=== PATIENT | male | born 1950 | race Caucasian/White ===

== ENCOUNTER 2024-11-19 12:57 | Inpatient (IN) | payer MEDICARE, OTHER, SELFPAY ==
[2024-11-19] VITALS (10 sets, daily range): BP systolic 139–200; BP diastolic 61–89; BMI 21.4; BMI 20.8
[2024-11-19 11:09] LABS: % Basophils 0.1 % (0-2); % Eosinophils 0.1 % (0-6); % Immature Granulocytes 0.4 % (0-0.5); % Lymphocytes 8.7 % (20.5-51.1); % Monocytes 13.7 % (1.7-9.3); Absolute Immature Granulocytes 0.1 10^3/uL (0-0.05); Absolute Lymphocytes 1.2 10^3/uL (1.2-3.4); Absolute Monocytes 1.9 10^3/uL (0.1-0.6); Absolute Neutrophils 10.4 10^3/uL (1.4-6.5); Hematocrit 35.7 % (39.0-52.0); Hemoglobin 12.4 g/dL (13.0-18.0); Mean Corp Hgb Conc. 34.7 g/dL (33.0-37.0); Mean Corpuscular Hgb 31.7 pg (27.0-31.0); Mean Corpuscular Volume 91.3 fL (80.0-94.0); Mean Platelet Volume 9.2 fL (7.4-10.4); Nucleated Red Blood Cells % 0 % (-); Platelet Count 245 10^3/uL (130-400); Red Blood Cell Count 3.91 10^6/uL (4.70-6.10); Red Cell Dist. Width 12.6 % (11.5-14.5); White Blood Cell Count 13.5 10^3/uL (4.8-10.8)
[2024-11-19 11:16] LABS: INR 1.33; PT 16.8 Sec (11.4-14.6)
--- NOTE | 2024-11-19 11:21 | ED.GENMED ---
History of Present Illness
General
Chief Complaint: Breathing Problem
Source: patient and spouse
Exam Limitations: none
Time Seen by Provider: 11/19/24 10:57
Nursing documentation reviewed up to this point in time: agreed with
History of Present Illness
History of Present Illness:
74-year-old male with hx HTN on Metoprolol, here now for SOB he feels is getting worse since yesterday. states pt took dog for a walk, came back after short period, went to the BR and said 'I think I'm having a panic attack.' She states he told
her he felt SOB and since then 'just hasn't been himself, laying around most of the time.' States when he got up during night to go to bathroom he told her he felt SOB. Pt denies CP, n/v/d/c. Has developed a cough past 24 hours
Pt had routine follow up with his Anesthesia Resident Dr. Lizarraga 4 days ago for echocardiogram
Found to be in new a fib and started on Eliquis and Diltiazem 240 mg. Has had 5 doses of Eliquis, 2 doses of Diltiazem.
Has appt in 3 days for stress test.
Past History
Past History
ED Past Medical History: HTN, Hypercholesterolemia and Other (peripheral vasc disease)
ED Past Surgical History: Other (stent RLE)
Social History
Tobacco: Former smoker
Alcohol: None
Personal:
Living: with family
Review of Systems
Review of Systems
Allergies reviewed?: Yes
All Other Systems: ROS reviewed and negative except as documented in HPI and ROS
Constitutional: Reports fatigue; Denies fever
EENT: Denies sore throat
Respiratory: Reports cough and trouble breathing
Cardiac: Denies chest pain
ABD/GI: Denies abdominal pain, nausea, vomiting, diarrhea or anorexia
: Denies dysuria or difficulty voiding
Musculoskeletal: Reports no symptoms
Skin: Reports no symptoms
Neurological: Reports no symptoms
Phy Exam
Physical Exam
Physical Exam:
GENERAL: No acute distress. A&Ox3.
CONSTITUTIONAL: Afebrile.
EYES: clear, conjunctivae normal
ENMT: moist mucus membranes, Pharynx nl
RESPIRATORY: Regular respirations, nonlabored, lungs clear.
CARDIOVASCULAR: Regular rate and irregular rhythm, no murmurs, no rubs.
GI: Soft, nontender, normal BS
MUSCULOSKELETAL: Moves with ease. Well perfused. No edema
SKIN: Warm, dry, pink
PSYCH: Normal mood and affect. Well kept, interactive and appropriate
NEUROLOGIC: Awake, alert and oriented. No focal neurological deficits
Scores
Heart Failure Risk
Heart Failure Risk Score: Yes
History of Stroke or TIA: No
History of intubation for respiratory distress: No
Heart rate on ED arrival >/= 110: No
SaO2 <90% on arrival on room air: No
HR >/=110 during 3min walk test (or too ill to perform test): Yes
ECG has acute ischemic changes: No
Urea >/=12mmol/L (BUN 33.6mg/dL): No
Serum CO2>/=35mmol/L: No
Troponin I or T elevated to CO Level (0.4mg/dL): No
NT-proBNP >/=5,000ng/L (5,000pg/ml): Yes
HF Risk Score: 3
Admission Status: HIGH RISK 15.9% Consider SNF treatment or admission to hospital
Course
Orders/Labs/Results
Orders:
Orders
11/19/24 10:31
EKG [Electrocardiogram (*1)] Urgent
Reason for Study: Palpitations
EKG- Treatment ONCE
11/19/24 10:39
Influenza A+B Rapid Molecular Urgent
DAMIR Source: Nasal Swab
Specimen Description:
Date Specimen was Collected: 11/19/24
Time Specimen was Collected: 10:38
11/19/24 10:52
CR Chest - 2 Views Urgent
Comment:
Reason For Exam: sob on exertion
11/19/24 10:58
Complete Blood Count/With Diff Urgent
Comprehensive Metabolic Panel Urgent
Pro-BNP [NT-proBNP] Urgent
Prothrombin Time Urgent
Troponin I Urgent
11/19/24 12:23
Furosemide [Lasix] 40 mg IV NOW STA
11/19/24 12:47
Admit/Transfer Patient As Directed
Co-Sign Provider:
Level of Care: Inpatient admission
Assign to:: Telemetry
Physician / Group: [email or web address]
Diagnosis: acute HF suspect CHF type unknown, Prx AF control VR , uncontrol HTN
Reason for Telemetry: Acute Heart Failure
Date to Stop Telemetry: 11/22/24
Time to Stop Telemetry: 11:00
Reason for Hospitalization: acute HF suspect CHF type unknown, Prx AF control VR , uncontrol HTN
Expected length of stay greater than two midnights?: Yes
ELOS- Estimated Length of Stay in days: 3
I certify the patient meets the requirements for IP care: Yes
11/19/24 12:49
Code Status As Directed
Resuscitation Status: Full Code
11/19/24 12:59
COVID-19 Antigen Routine
Source: Nasal Swab
11/19/24 14:40
Troponin I Q6H
Comment: at admission & every 6 hours x 2 (3 total), ECG to be done with each level
11/19/24 14:40
CARDIOLOGY CONSULT Routine
Consulting Provider: Leida Miller
Was physician already notified: Yes
Reason for consult: acute HF suspect CHF type unknown, Prx AF control VR , uncontrol HTN
HF DIETARY CONSULT Routine
HF EDUCATOR CONSULT Routine
Comment:
Activity As Directed
Activity Level: With Assistance
Intake/ Output As Directed
Frequency: Per unit guidelines
Patient Education As Directed
Type: CHF folder
Comment: give on admission. Document in Interdisciplinary Education record
Sleep Apnea Assessment by RN As Directed
Comment:
Physician Instructions:
Vital Signs As Directed
Frequency: Other
Additional Instructions:: Q12 or per unit guidelines if more frequent.
Weight As Directed
Frequency: Daily
Type of Scale: Standing Scale
Comment: Daily morning weight. If unable to stand, use balanced bed scale.
Weight As Directed
Frequency: Once
Type of Scale: Standing Scale
Comment: Upon Admission. If unable to stand, use balanced bed scale.
Pulse Ox/cont/shift [RESP] Routine
Quantity: 1
Special Instructions: Daily pulse oximetry at rest. If greater than 92% at rest also obtain pulse oximetry
while ambulating as tolerated.
11/19/24 Dinner
Cholesterol Lowering
At Your Request: Full Participation
Does patient need a safe tray?: No
Cholesterol Lowering: Sodium, 2 Gram
11/19/24 16:00
Furosemide [Lasix] 20 mg IV BID AT 0800,1600
11/19/24 20:00
Apixaban [Eliquis] 5 mg PO BID
11/19/24 20:40
Troponin I Q6H
Comment: at admission & every 6 hours x 2 (3 total), ECG to be done with each level
11/20/24 02:40
Troponin I Q6H
Comment: at admission & every 6 hours x 2 (3 total), ECG to be done with each level
11/20/24 06:00
Echo 2D MMode Color/Doppler IN AM
Reason for Study: heart failure
Basic Metabolic Panel IN AM
Cardiovascular Evaluation IN AM
Complete Blood Count/With Diff IN AM
TSH Reflex To Free T4 IN AM
11/20/24 08:00
Atorvastatin [Lipitor] 40 mg PO DAILY
Metoprolol Xl [Toprol Xl] 25 mg PO DAILY
11/21/24 06:00
Basic Metabolic Panel IN AM
11/22/24 06:00
Basic Metabolic Panel IN AM
11/22/24 11:00
DC Protocol for Telemetry ONCE
Abnormal Lab Results
11/19/24
10:58
WBC 13.5 H 10^3/uL
(4.8-10.8)
RBC 3.91 L 10^6/uL
(4.70-6.10)
Hgb 12.4 L g/dL
(13.0-18.0)
Hct 35.7 L %
(39.0-52.0)
MCH 31.7 H pg
(27.0-31.0)
Abs Immat Gran (auto) 0.1 H 10^3/uL
(0-0.05)
Absolute Neuts (auto) 10.4 H 10^3/uL
(1.4-6.5)
Absolute Monos (auto) 1.9 H 10^3/uL
(0.1-0.6)
Neutrophils % 77.0 H %
(42.2-75.2)
Lymphocytes % 8.7 L %
(20.5-51.1)
Monocytes % 13.7 H %
(1.7-9.3)
PT 16.8 H Sec
(11.4-14.6)
Sodium 127 L mmol/L
(135-145)
Chloride 96 L mmol/L
(98-107)
Carbon Dioxide 19 L mmol/L
(22-30)
Glucose 118 H mg/dl
(70-99)
Total Bilirubin 1.6 H mg/dl
(0.2-1.3)
11/19/24 10:58
11/19/24 10:58
Vital Signs
Initial and Last Documented VS:
Initial Vital Signs
Temp Pulse Resp BP Pulse Ox
99.2 F 92 18 169/77 93
11/19/24 10:35 11/19/24 10:35 11/19/24 10:35 11/19/24 10:35 11/19/24 10:35
Last Documented Vital Signs
Temp Pulse Resp BP Pulse Ox
99.8 F 99 20 173/80 92
11/19/24 15:18 11/19/24 15:18 11/19/24 15:18 11/19/24 15:18 11/19/24 15:18
MDM/Problems Addressed
Differential Diagnosis Includes:
CHF, covid, flu
MDM/Problems Addressed:
74-year-old male with hx HTN on Metoprolol, here now for SOB he feels is getting worse since yesterday. states pt took dog for a walk, came back after short period, went to the BR and said 'I think I'm having a panic attack.' She states he told
her he felt SOB and since then 'just hasn't been himself, laying around most of the time.' States when he got up during night to go to bathroom he told her he felt SOB. Pt denies CP, n/v/d/c. Has developed a cough past 24 hours
Pt had routine follow up with his Anesthesia Resident Dr. Lizarraga 4 days ago for echocardiogram
Found to be in new a fib and started on Eliquis and Diltiazem 240 mg. Has had 5 doses of Eliquis, 2 doses of Diltiazem.
Has appt in 3 days for stress test.
Afebrile, NAD
EKG: Afib Rate 94
HR on monitor 82-98
11:30 a.m.
CBC: WBC 13.5 w elevated monos
CMP:Na 127 otherwise unremarkable.
[id number]
Troponin WNL
Flu neg
12:10 p.m.
CXR: CHF
Plan: Admit: Recent new onset Afib, CHF
Pt and updated
Hospitalist notified of admission
*Critical Care Note
Total Time (30-74mins, 75-104mins- exclusive of procedures): Not Applicable
ED Attending Note
-
Portions of this chart may have been created with voice recognition software.� Occasional wrong word or��sound alike� substitutions may have occurred due to the inherent limitations of voice recognition software.
Discharge Plan
Departure
Patient Disposition: Admit
Date of Disposition: 11/19/24
Time of Disposition: 12:14
Admit to: Telemetry
Presentation/result/management discussed w/ accepting MD/DO: Hospitalist
Condition: Fair
Discharge Problem:
A-fib, CHF (congestive heart failure)
Interventions
Interventions:
*Risk Screen - Suicide Last Done: 11/19/24 10:55
*General Assessment Last Done: 11/19/24 10:55
*Neglect/Abuse Screening Last Done: 11/19/24 10:55
*ED COVID-19 Vaccine History Last Done: 11/19/24 10:55
*Nursing Disposition Last Done: 11/19/24 13:55
ED- Cardiac Assessment Last Done: 11/19/24 10:55
ED- Pulmonary Assessment Last Done: 11/19/24 10:55
Discharge Date and Time
Discharge Date/Time: 11/19/24 13:56
[2024-11-19 11:25] LABS: ALT (SGPT) 16 U/L (0-50); AST (SGOT) 25 U/L (17-59); Albumin 4.1 g/dl (3.5-5.0); Alkaline Phosphatase 56 U/L (38-126); Blood Urea Nitrogen 11 mg/dl (9-20); Calcium 9.1 mg/dl (8.4-10.2); Carbon Dioxide 19 mmol/L (22-30); Chloride 96 mmol/L (98-107); Estimated Creatinine Clearance 83 ml/min; Glucose 118 mg/dl (70-99); Potassium 4.7 mmol/L (3.5-5.1); Sodium 127 mmol/L (135-145); Total Bilirubin 1.6 mg/dl (0.2-1.3); Total Protein 7.4 g/dl (6.3-8.2); eGFR > 60.00
[2024-11-19 11:36] LABS: NT-proBNP 4530 pg/ml; Troponin I < 0.012 ng/ml
--- NOTE | 2024-11-19 12:40 | HPS.HSE ---
Family Physician
-
Family Physician: Erin Villa MD
Chief Complaint
-
SoB
History of Present Illness
74M No prior admission to HX HTN , recently Dxed New AF seen at ER;
- evaluation of progressive SoB since yesterday
- states pt took dog for a walk, came back after short period, went to the and said 'I think I'm having a panic attack.'
- he felt SOB and since then 'just hasn't been himself, laying around most of the time.'
- onset of cough past 24 hours
Pt had routine follow up with [facility] [place] [employer] Dr. Lizarraga 4 days ago for echocardiogram
Found to be in new a fib and started on Eliquis and Diltiazem 240 mg. Has had 5 doses of Eliquis, 2 doses of Diltiazem.
Has appt in 3 days for stress test.
ROS:
Pt denies CP, n/v/d/c.
Medical History
Past Medical History
Past Medical History: Reports Arrhythmia (recently Dxed new onset of AF ), HTN and Hypercholesterolemia
Past Surgical History: Reports Other (PAD - stent RLE))
Social History
Tobacco: Former Smoker
Alcohol: None
Personal:
Living: With Family
Family History
Family History: Not pertinent
Allergies / Home Medications
Allergies reflects when Allergies were last updated in [employer].
Home Medications with original date entered in [employer]
Allergy/Medication List:
Allergies
Allergy/AdvReac Type Severity Reaction Status Date / Time
No Known Allergies Allergy Verified 05/18/22 09:42
Home Medications
aspirin 81 mg tablet 81 mg PO DAILY 05/18/22
atorvastatin 40 mg tablet 40 mg PO DAILY 05/18/22
furosemide 40 mg tablet 40 mg PO .EVERY OTHER DAY 05/18/22
lisinopril 10 mg tablet 10 mg PO DAILY 05/18/22
metoprolol succinate 25 mg tablet,extended release 24 hr 25 mg PO DAILY 05/18/22
multivitamin 1 cap PO DAILY 05/18/22
Review of Systems
-
Constitutional: Reports No Symptoms
EENT: Reports No Symptoms
Cardiac: Reports No Symptoms
Abdomen/GI: Reports No Symptoms
: Reports No Symptoms
Musculoskeletal: Reports No Symptoms
Skin: Reports No Symptoms
Neurological: Reports No Symptoms
Endocrine: Reports No Symptoms
Hematologic/Lymphatic: Reports No Symptoms
Psych: Reports No Symptoms
Physical Exam
Vital Signs
Vital Signs
Temp Pulse Resp BP Pulse Ox
99.7 F 88 20 151/77 87
11/19/24 10:59 11/19/24 12:05 11/19/24 12:05 11/19/24 11:00 11/19/24 12:05
Physical Exam
General: No Apparent Distress
HEENT: NormoCephalic and Moist mucous membranes
Respiratory: Clear
Cardiac: S1/S2 and Irregular Rhythm; No Murmur
GI: Soft, Non Tender, Non Distended and Normal Bowel Sounds
Musculoskeletal: No Edema
Neuro: AO x 3 and No Motor Deficits
Psych: Calm and Intact Judgment/Insight
Laboratory Results
-
11/19/24 10:58
11/19/24 10:58
Laboratory Results
PT 16.8 Sec (11.4-14.6) H 11/19/24 10:58
INR 1.33 11/19/24 10:58
Total Bilirubin 1.6 mg/dl (0.2-1.3) H 11/19/24 10:58
AST 25 U/L (17-59) 11/19/24 10:58
ALT 16 U/L (0-50) 11/19/24 10:58
Alkaline Phosphatase 56 U/L (38-126) 11/19/24 10:58
Troponin I < 0.012 ng/ml 11/19/24 10:58
Data Reviewed
-
Diagnostic Radiology: Image Personally Visualized and interpreted
Medical Tests (Nuc Med, Echo, EKG etc): Report Reviewed by me
Lab Data: Labs Reviewed by me
Impression/Plan
-
Reviewed VS: T 99.7 HR mid 80s RR 20s BP 150/77 - 177/76 PO low 90s to 87
Data
WCC 13.5
Na 127
Cl 96
CO2 19
nl Cr , nl eGFR
TPNI NEG
proBNP 4530
CXR; pending final report . My view suspect CHF
EKG;
ATRIAL FIBRILLATION wih VR 90s
ABNORMAL ECG
NO PREVIOUS ECGS AVAILABLE
No prior ECHO in [facility]
No prior hospitalist admission:
ASSESSMENT & PLAN
Pending Rx reconciliation
Acute CHF ; type unknown
- cont. IV Lasix 20mg BID
- daily: wt, IOs, BMP
- ECHO in AM
- CBC card consult
Prox AF with control VR on Metoprolol succinate 25mg PO daily
Of note: Pt had routine follow up with [facility] [place] [employer] Dr. Lizarraga 4 days ago for echocardiogram
Found to be in new a fib and started on Eliquis and Diltiazem 240 mg.
Has had 5 doses of Eliquis, 2 doses of Diltiazem.
Has appt in 3 days for stress test.
- c/w SOFTWARE QUALITY ASSURANCE ENGINEER Eliquis
- cont. current Metoprolol succinate dose
- ECHO
- await Card evaluation
Essential HTN; poorly control
Preserved renal function
- on SOFTWARE QUALITY ASSURANCE ENGINEER Lisinopril 10mg daily, metoprolol succinate 25mg daily, Diltiazem ER 240 mg daily
- will increase lisinopril to 20 mg daily
- Observe BP
- Observe RFTs daily
Leucocytosis
Low grade fever
- check Flu A & B
- check Covid
- await final CXR read
HLD
- on ASA nd Atorvastatin
DVT Px: Eliquis
Full code
IP TLM
[2024-11-19] MEDS: LASIX 40 MG IV (13:00)
[2024-11-19 13:35] LABS: COVID-19 Antigen Negative (Negative)
[2024-11-19] MEDS: LASIX 20 MG IV (16:13)
[2024-11-19 18:20] LABS: Troponin I < 0.012 ng/ml
--- NOTE | 2024-11-19 18:31 | CON.CAR ---
Consultation
Consultation Request
Date/Time Consultation Requested: 11/19/24
Date/Time Consultation Performed: 11/19/24
Requesting Provider: Dr Leblanc
Performing Provider: Dr Miller (primary cardiology [facility])
Reason for Consultation: AF
Medical History
-
Chief Complaint: weakness
History of Present Illness:
74-year-old gentleman with a past medical history of PAD status post PCI to the left leg and hypertension who follows with Dr. Asher at [facility] reports he was diagnosed on Wednesday with new atrial fibrillation. He had no sense of it,
so was started on medications. After he took his Eliquis yesterday he felt weak and short of breath and thought it was due to this. In retrospect he does not think this is the case any longer. He has an appointment on Wednesday for a stress test
and further evaluation with his multiplex operator. He reports they were considering a cardioversion in the future but not right away. Currently, he has no sense of palpitations, shortness of breath or chest pain.He says on Wednesday he was collecting
and gathering firewood with a wheelbarrow and wheeling in him without an issue.
Past Medical History
Past Medical History: HTN and Other (PAD)
Social History
Tobacco: Former Smoker
Alcohol: None
Family History
Family History: Reviewed & Not Pertinent
Allergies / Home Medications
Allergy/AdvReac Type Severity Reaction Status Date / Time
No Known Allergies Allergy Verified 05/18/22 09:42
�Medication �Instructions �Recorded �Confirmed �Type
metoprolol succinate 25 mg 25 mg PO DAILY 05/18/22 11/19/24 History
tablet,extended release 24 hr
acetaminophen 500 mg tablet 500 mg PO Q6HPRN PRN mild pain 11/19/24 11/19/24 History
apixaban 5 mg tablet 5 mg PO BID 11/19/24 11/19/24 History
aspirin 81 mg capsule 81 mg PO DAILY 11/19/24 11/19/24 History
diltiazem HCl 240 mg 240 mg PO DAILY 11/19/24 11/19/24 History
capsule,extended release 24 hr
loperamide 2 mg capsule 2 mg PO DAILYPRN PRN diarrhea 11/19/24 11/19/24 History
Review of Systems
-
All other systems: Negative unless noted
Physical Exam
Vital Signs
Temp Pulse Resp BP Pulse Ox
99.8 F 88 20 161/82 92
11/19/24 15:18 11/19/24 15:20 11/19/24 15:18 11/19/24 15:20 11/19/24 15:18
Lab Results
11/19/24 10:58
11/19/24 10:58
Troponin I < 0.012 ng/ml 11/19/24 17:47
Jin-S-Jhcjuwheuxi Pept 4530 pg/ml 11/19/24 10:58
Physical Exam
General: Well Developed and Well Nourished
HEENT: Normocephalic
Respiratory: Clear; Negative Wheezes, Crackles or Rhonchi
Cardiac: S1/S2 and Irregular Rhythm; Negative Murmur, Rub or Peripheral Edema
Musculoskeletal: No Clubbing, No Cyanosis and No Edema
Neuro: AO x 3
Impression / Plan
-
74-year-old male with a new diagnosis of atrial fibrillation on Wednesday presented for evaluation of weakness and shortness of breath. Currently, he he has no sense of palpitations and denies shortness of breath to me.
Shortness of breath: Denies to me. Chest x-ray shows right-sided increased interstitial markings. He has a leukocytosis. He is COVID and flu negative.
Differential diagnosis includes atypical pneumonia versus heart failure. proBNP is elevated and A-fib is new, favors heart failure
Agree with diuresis with IV Lasix and intensive monitoring and reassessment.
Will check an echo.
Atrial fibrillation with rapid ventricular response:
-Typically on metoprolol 25 mg daily, he took 2 doses of diltiazem to 40 mg after prescription by his primary multiplex operator.
-I will uptitrate his metoprolol and try to keep him on a single agent.
-I discussed possibly offering him RONNIE/DC cardioversion but he prefers to do that with his primary multiplex operator, therefore we will just update echocardiogram.
-He understands he needs to be compliant with Eliquis given the elevated stroke risk.
PAD: Reports prior PCI to the leg, he is not on a statin, will clarify
Hypertension: Elevated, increasing beta-kacie.
Will follow
Data Reviewed
-
EKG: Tracing Personally Visualized and interpreted (Atrial fibrillation.)
Radiology: Image Personally Visualized and interpreted (Right-sided interstitial markings small bilateral pleural effusions)
Labs: Labs Reviewed by me (proBNP 4530, troponin less than 0.012 x 2 white count 13.5 with 77% neutrophils)
[2024-11-19] MEDS: ELIQUIS 5 MG PO (20:34)
[2024-11-19] MEDS: TOPROL XL 25 MG PO (20:35)
[2024-11-19 21:58] LABS: Troponin I < 0.012 ng/ml
[2024-11-20 03:00] VITALS: BP 154/85
[2024-11-20 03:52] LABS: % Basophils 0.2 % (0-2); % Eosinophils 0.8 % (0-6); % Immature Granulocytes 0.4 % (0-0.5); % Lymphocytes 17.8 % (20.5-51.1); % Monocytes 16.4 % (1.7-9.3); % Neutrophils 64.4 % (42.2-75.2); Absolute Eosinophils 0.1 10^3/uL (0-0.7); Absolute Monocytes 1.9 10^3/uL (0.1-0.6); Absolute Neutrophils 7.3 10^3/uL (1.4-6.5); Hematocrit 36.2 % (39.0-52.0); Hemoglobin 12.6 g/dL (13.0-18.0); Mean Corp Hgb Conc. 34.8 g/dL (33.0-37.0); Mean Corpuscular Hgb 32.3 pg (27.0-31.0); Mean Corpuscular Volume 92.8 fL (80.0-94.0); Mean Platelet Volume 9.5 fL (7.4-10.4); Nucleated Red Blood Cells % 0 % (-); Platelet Count 227 10^3/uL (130-400); Red Cell Dist. Width 12.6 % (11.5-14.5); White Blood Cell Count 11.4 10^3/uL (4.8-10.8)
[2024-11-20 04:08] LABS: Blood Urea Nitrogen 12 mg/dl (9-20); Calcium 8.8 mg/dl (8.4-10.2); Carbon Dioxide 24 mmol/L (22-30); Chloride 92 mmol/L (98-107); Estimated Creatinine Clearance 81 ml/min; Glucose 108 mg/dl (70-99); HDL Cholesterol 78 mg/dl; LDL Cholesterol, Calculated 65 mg/dl; Potassium 4.3 mmol/L (3.5-5.1); Sodium 125 mmol/L (135-145); Total Cholesterol 152 mg/dl (50-199); Triglyceride 48 mg/dl (10-149); Very Low Density Lipoprotein 9 mg/dl (0-30); eGFR > 60.00
[2024-11-20 04:20] LABS: Troponin I < 0.012 ng/ml
[2024-11-20 04:39] LABS: TSH Reflex To Free T4 2.65 uIU/ml (0.47-4.68)
[2024-11-20 06:00] VITALS: BMI 19.5
[2024-11-20 07:22] VITALS: BMI 19.5
[2024-11-20 07:36] VITALS: BP 138/90
--- NOTE | 2024-11-20 07:40 | W.PN.HOSP.TC ---
Addendum entered and electronically signed by Joseph Leary MD 11/21/24 00:14:
Attending Addendum:
I saw and evaluated the patient. I reviewed the resident�s note and agree with findings and plan as documented in the resident�s note. Sub: Feels great. Denies SOB CP palps. 'id like to go home today' Full 12 point ROS reviewed and negative except
as documented Exam: Vitals reviewed in chart GEN-NAD heart irreg irreg lungs fine crackles at abses abd soft LE no edema
#Acute HFpEF
# Shortness of breath
- resolved
- now euvolemic
- Received IV Lasix 20mg BID
- daily: wt, IOs, 4 kg down
- ECHO 11/20- unchanged
- uptitrated metoprolol XL to BID
- started on Farxiga, registered nurse hh case manager consult for pricing Farxiga versus Jardiance;
- prescription provided to the patient upon discharge
#Atrial fibrillation with rapid ventricular response
-c/w Eliquis 5mg bid
-cont. increased Metoprolol succinate dose 25mg bid
-RONNIE/DC cardioversion with outpatient bingo cashier on 11/22
#Essential HTN; poorly control on arrival
-- better controlled
-- Metoprolol XL increased to 25 twice daily
-- Discontinue diltiazem
#Leucocytosis
--Negative Flu A & B, Covid
--Trending down
--11/19 CXR:Diffuse interstitial pneumonia throughout the right hemithorax, most pronounced in the perihilar distribution and right upper lobe. No focal dense consolidation. Trace bilateral pleural effusions, right slightly greater than left.
#Asymptomatic Chronic Hyponatremia
-- States his sodium usually runs around 126 and he is aware of this.
#Hyperlipidemia
--on ASA and Atorvastatin
Full code
DC home today
Time spent coordinating care, DC planning, review of DC plan of care with resident, transition of care, review of records, med rec/scripts sent electronically, consults, notes, d/w consultants, nursing, cards, and CM� 33 mins
Original Note:
Today's Communication/Plan
-
Discharge home
follow-up with outpatient bingo cashier if echo unremarkable.
Assessment / Plan
Assessment / Plan
74-year-old male with a past medical history of PAD status post PCI to the left leg and hypertension and new atrial fibrillation presented with Progressive SOB.
ECHO:
Normal left ventricular size, wall thickness and systolic function.
LV ejection fraction is 55% by volumetric assessment.
No regional wall motion abnormalities are seen.
Normal right ventricular size and function.
Mild to moderate eccentric mitral regurgitation.
Estimated pulmonary artery pressure of 20-25 mmHg assuming a right atrial
pressure of 3 mmHg.
No prior study available for comparison
#Acute HFpEF
# Shortness of breath
-- Seems euvolemic
-- Troponin negative
-- Received IV Lasix 20mg BID; will provide Lasix 40 mg dose for as needed use per cardiology recommendations.
-- daily: wt, IOs, 4 kg down
-- ECHO today; cardiology input appreciated; echo unremarkable.
-- Per cardiology chart they offered RONNIE/DC cardioversion but patient refused while inpatient and plans to do with with outpatient bingo cashier.
-- started on Farxiga, registered nurse hh case manager consult for pricing Farxiga versus Jardiance; prescription provided to the patient upon discharge
#Atrial fibrillation with rapid ventricular response
--started on Eliquis and Diltiazem 240 mg by outpatient cardio few days ago
--c/w Eliquis 5mg bid
--cont. current/increased Metoprolol succinate dose 25mg bid
#Essential HTN; poorly control on arrival
-- On arrival was using metoprolol succinate 25mg daily, Diltiazem ER 240 mg daily
-- Metoprolol increased to 25 twice daily
-- Discontinue diltiazem
#Leucocytosis
--Negative Flu A & B, Covid
--Trending down
--11/19 CXR:Diffuse interstitial pneumonia throughout the right hemithorax, most pronounced in the perihilar distribution and right upper lobe. No focal dense consolidation. Trace bilateral pleural effusions, right slightly greater than left.
#Asymptomatic Hyponatremia
-- States his sodium usually runs around 126 and he is aware of this.
#Hyperlipidemia
--on ASA and Atorvastatin
Full code
Anticipated Discharge: Today
Subjective/Interval History
-
Date of Service: November 20, 2024
Patient states he is feeling fine.
Objective Data
-
Labs:
Laboratory Results
11/20/24
03:36
WBC 11.4 H
Hgb 12.6 L
Hct 36.2 L
Plt Count 227
Sodium 125 L
Potassium 4.3
Chloride 92 L
Carbon Dioxide 24
BUN 12
Creatinine 0.8
Glucose 108 H
Calcium 8.8
Vital Signs:
Vital Signs
Temp Pulse Resp BP Pulse Ox
98.9 F 83 22 138/90 92
11/20/24 07:36 11/20/24 07:36 11/20/24 07:36 11/20/24 07:36 11/20/24 07:36
I&O
11/19/24 11/20/24 11/21/24
06:59 06:59 06:59
Intake Total 960 / 960
Output Total 400 / 400
Balance 560 / 560
Review of Systems
-
History Source: Patient
Constitutional: Reports No Symptoms
Respiratory: Reports No Symptoms
Cardiac: Reports No Symptoms
Abdomen/GI: Reports No Symptoms
Genitourinary: Reports No Symptoms
Neuro: Reports No Symptoms
Physical Exam
-
General: Well Developed, Well Nourished and No Apparent Distress
HEENT: Normocephalic and Atraumatic
Respiratory: Clear to Auscultation
Cardiac: Irregular Rhythm
GI: Soft, Nontender and Nondistended
Neuro: Awake, Alert and Oriented
Psych: Calm
Data Reviewed
-
Diagnostic Radiology: Report Reviewed by me
Labs: Labs Reviewed by me, Discussed with Physician and Discussed with Patient
[2024-11-20] MEDS: TOPROL XL 25 MG PO (07:46)
[2024-11-20] MEDS: ELIQUIS 5 MG PO (07:46)
[2024-11-20] MEDS: LIPITOR 40 MG PO (07:46)
[2024-11-20] MEDS: LASIX 20 MG IV (07:46)
[2024-11-20 09:12] LABS: Urine Albumin 2+ (Neg - Trace); Urine Bilirubin Negative (Negative); Urine Character Clear (Clear); Urine Color Yellow; Urine Glucose Negative (Negative); Urine Ketone Negative (Negative); Urine Leukocyte Negative (Negative); Urine Nitrite Negative (Negative); Urine Occult Blood 1+ (Negative); Urine Specific Gravity 1.005 (<1.030); Urine Urobilinogen Negative (Neg - 1+)
[2024-11-20 09:32] LABS: Osmolality Urine 323 mOsm/kg (300-900)
[2024-11-20 09:54] LABS: Urine Squamous Cell 0-2 /LPF (Few)
[2024-11-20 09:55] LABS: Urine Bacteria Few (Negative)
[2024-11-20 10:09] LABS: Urine Sodium 110 mmol/L (30-90)
--- NOTE | 2024-11-20 10:15 | W.PN.CD ---
Today's Communication / Plan
-
echo
start farxiga 10mg daily (home on whichever sglt2i is affordable farxiga vs jardiace)
If echo normal, would recommend discharge home with close follow up already scheduled with his typical diamond powder technician.
Impression / Plan
-
74-year-old male with a new diagnosis of atrial fibrillation on Wednesday presented for evaluation of weakness and shortness of breath. Currently, he he has no sense of palpitations and denies shortness of breath to me.
Acute Heart Failure:
-unknown ef, echo today
-euvolemic now
-add sglt2-1, further GDMT after echo. If normal, defer additional to primary op cardiology
-stop lasix
-etiology I suspect AF
Atrial fibrillation with rapid ventricular response:
-Typically on metoprolol 25 mg daily, he took 2 doses of diltiazem to 40 mg after prescription by his primary diamond powder technician.
-Rate is controlled with increased metoprolol and try to keep him on a single agent.
-I discussed possibly offering him RONNIE/DC cardioversion but he prefers to do that with his primary diamond powder technician, therefore we will just update echocardiogram.
-He understands he needs to be compliant with Eliquis given the elevated stroke risk.
Hyponatremia:
-in discussion with the patient he reports his NA is typically 126 as op
PAD: Reports prior PCI to the leg, he is not on a statin, will clarify
Hypertension: Elevated, increasing beta-kacie.
Subjective:
he feels a lot better.
Physical Exam
Vital Signs/Labs
Vital Signs
Temp Pulse Resp BP Pulse Ox
98.9 F 83 22 138/90 92
11/20/24 07:36 11/20/24 07:36 11/20/24 07:36 11/20/24 07:36 11/20/24 07:36
11/19/24 11/20/24 11/21/24
06:59 06:59 06:59
Actual Weight 65 kg
11/20/24 03:36
11/20/24 03:36
PT 16.8 Sec (11.4-14.6) H 11/19/24 10:58
INR 1.33 11/19/24 10:58
Triglycerides 48 mg/dl (10-149) 11/20/24 03:36
LDL Cholesterol, Calc 65 mg/dl 11/20/24 03:36
VLDL Cholesterol, Calc 9 mg/dl (0-30) 11/20/24 03:36
HDL Cholesterol 78 mg/dl 11/20/24 03:36
11/19/24
10:58
Rqk-[id number] Pept 4530
LAB Results
11/19/24 11/19/24 11/19/24
10:58 17:47 21:27
Troponin I < 0.012 < 0.012 < 0.012
11/20/24
03:36
Troponin I < 0.012
Physical Exam
Constitutional: No acute distress
Cardiovascular: Pedal edema is absent, JVD pressure is normal, Systolic murmur absent, Diastolic murmur absent and Rhythm/rate is irregular
Respiratory: Respiratory effort normal, Lungs clear to auscul., Wheeze Absent, Crackles Absent and Rhonchi Absent
Neuro/Psych: AO x 3
Data Reviewed
-
Date of Service: November 20, 2024
Medical Decision Making: Review of Case with other Provider (Resident physician regarding his sodium and likely able to discharge later)
EKG: Other (rate control afib)
[2024-11-20] MEDS: FARXIGA 10 MG PO (10:21)
[2024-11-20 11:24] VITALS: BP 158/80
[2024-11-20 15:30] VITALS: BP 136/70
--- NOTE | 2024-11-20 18:01 | W.DCSUMMARY ---
Addendum entered and electronically signed by Joseph Leary MD 11/21/24 00:15:
Read, reviewed, and agree. See same day progress note for additional details. D/W Cards ok for DC on prn lasix and close OP f/u
Valentín Leary MD
Original Note:
Documented by User: Frnakie Ferraro MD, Resident 11/20/24 18:15
Discharge Summary
Discharge Data
Date of Admission: 11/19/24
Date of Discharge: 11/20/24
-
Pending Results: No
Hospital Course
Discharging Physician : Frankie Ferraro MD ; Joseph Leary MD
Disposition : Home
Primary care physician : Erin Villa
Principal Discharge diagnosis : Acute HFpEF
Chronic Discharge diagnosis : Atrial fibrillation with rapid ventricular response, hyponatremia, PAD, hypertension
Hospital Course : 74-year-old gentleman with a past medical history of PAD status post PCI to the left leg and hypertension who follows with Dr. Asher at [facility] reports he was diagnosed on Wednesday with new atrial fibrillation.
Reportedly he was recently started on Eliquis and diltiazem by the insurance attorney. He was noticing shortness of breath and presented in the ER for further evaluation. Cardiology was also on board during his stay at the hospital.
1. Acute HFpEF; shortness of breath
Chest x-ray, EKG and echo below. Troponins were negative. He received IV Lasix 20 mg twice daily while in the hospital and he was instructed and given a prescription of 40 mg Lasix to use on as needed basis if weight increase more than 3 pounds
per day or 5 pounds in a week. He was also started on Farxiga 10 mg daily by cardiology. manager utility tried to check pricing however pharmacy needed a prescription before they can check the foster. Physical prescription given to the patient upon
discharge. Weight decreased by 4KG in 1 day at the hospital. If Farxiga 10 mg is not covered Jardiance 10 mg can be considered.
2. Atrial fibrillation with rapid ventricular response
His Eliquis was continued in the hospital however diltiazem was discontinued and metoprolol dose was increased from 25 mg once daily to 25 mg twice daily which will potentially help with better blood pressure control as well.
Cardiology offered him RONNIE/DC cardioversion but he refused and reports preference to do it with primary insurance attorney has outpatient. He understands that he needs to be compliant with Eliquis given the elevated stroke risk.
3. Hyperlipidemia
His atorvastatin 40 mg dose was continued and a prescription was sent upon discharge.
He had mild leukocytosis in the hospital however flu and COVID tested were negative and chest x-ray results below. The white blood cell was trending down. He did not had any systemic symptoms on day of discharge.
Asymptomatic hyponatremia was also seen on the labs however patient states that he usually runs around 126 and have a history of low sodium.
Given his history of PAD status post PCI to the left leg he was continued on aspirin 81 mg.
Important imaging findings : CR Chest - 2 Views:
Diffuse interstitial pneumonia throughout the right hemithorax, most pronounced in the perihilar distribution and right upper lobe. No focal dense consolidation. Trace bilateral pleural effusions, right slightly greater than left.
Procedure findings : 11/19/24
EKG: ATRIAL FIBRILLATION
ABNORMAL ECG
11/20/24: EKG:
ATRIAL FIBRILLATION
ABNORMAL ECG
ECHO 11/20/2024: CONCLUSIONS
Normal left ventricular size, wall thickness and systolic function.
LV ejection fraction is 55% by volumetric assessment.
No regional wall motion abnormalities are seen.
Normal right ventricular size and function.
Mild to moderate eccentric mitral regurgitation.
Estimated pulmonary artery pressure of 20-25 mmHg assuming a right atrial
pressure of 3 mmHg.
No prior study available for comparison
Discharge Plan
-
Patient Disposition: Home (Routine Discharge)
Discharge Diagnosis/Procedures: Acute HFpEF, atrial fibrillation with rapid ventricular response, hyponatremia, PAD, hypertension
Condition: Good
Diet: Low Cholesterol and 2 Gram Sodium
Activity: No restrictions
Driving Restrictions: As prior to admission
Bathing Restrictions: None
Instructions: *[facility] Heart Failure Instructions
Referrals:
Erin Villa MD [Family Provider] - in less than 1 week
Additional Discharge Medication Instructions: Take dapagliflozin 10 mg tablet every day
Take metoprolol 25 mg 1 tablet extended release twice daily
Take atorvastatin 40 mg tablet once daily
Take furosemide 40 mg 1 tablet by mouth if weight increases by 3 pounds in a day or 5 pounds in a week.
Discontinue diltiazem 240 mg capsule
Follow-up with cardiology outpatient and PCP within 1 week
Prescriptions:
New
atorvastatin 40 mg Tablet
40 mg PO DAILY Qty: 30 0RF
metoprolol succinate 25 mg Tablet Extended Release 24 Hr
25 mg PO BID Qty: 60 0RF
dapagliflozin propanediol 10 mg Tablet
10 mg PO DAILY Qty: 30 0RF
furosemide 40 mg tablet
40 mg PO PRN PRN (Reason: Weight gain) Qty: 20 0RF
Rx Instructions:
1 tab If weight increase by >3lbs/day or 5lbs/week.
Continued
loperamide 2 mg Capsule
2 mg PO DAILYPRN PRN (Reason: diarrhea)
acetaminophen 500 mg Tablet
500 mg PO Q6HPRN PRN (Reason: mild pain)
apixaban 5 mg Tablet
5 mg PO BID Qty: 0 0RF
aspirin 81 mg Capsule
81 mg PO DAILY Qty: 0 0RF
Discontinued
metoprolol succinate 25 mg Tablet Extended Release 24 Hr
25 mg PO DAILY
diltiazem HCl 240 mg Capsule,Extended Release 24hr
240 mg PO DAILY
Discharge Orders:
Discharge Patient (As Directed); Ordered 11/20/24
Ordered By: Frankie Ferraro
Discharge Date and Time
Discharge Date/Time: 11/20/24 17:53
Print Language: UPPER SORBIAN

Documented by User: Joseph Leary MD 11/21/24 00:05
Discharge Summary
Discharge Data
Date of Admission: 11/19/24
Date of Discharge: 11/21/24
Discharge Plan
-
Patient Disposition: Home (Routine Discharge)
Discharge Diagnosis/Procedures: Acute HFpEF, atrial fibrillation with rapid ventricular response, hyponatremia, PAD, hypertension
Condition: Good
Diet: Low Cholesterol and 2 Gram Sodium
Activity: No restrictions
Driving Restrictions: As prior to admission
Bathing Restrictions: None
Instructions: *[facility] Heart Failure Instructions
Referrals:
Erin Villa MD [Family Provider] - in less than 1 week
Additional Discharge Medication Instructions: Take dapagliflozin 10 mg tablet every day
Take metoprolol 25 mg 1 tablet extended release twice daily
Take atorvastatin 40 mg tablet once daily
Take furosemide 40 mg 1 tablet by mouth if weight increases by 3 pounds in a day or 5 pounds in a week.
Discontinue diltiazem 240 mg capsule
Follow-up with cardiology outpatient and PCP within 1 week
Prescriptions:
New
atorvastatin 40 mg Tablet
40 mg PO DAILY Qty: 30 0RF
metoprolol succinate 25 mg Tablet Extended Release 24 Hr
25 mg PO BID Qty: 60 0RF
dapagliflozin propanediol 10 mg Tablet
10 mg PO DAILY Qty: 30 0RF
furosemide 40 mg tablet
40 mg PO PRN PRN (Reason: Weight gain) Qty: 20 0RF
Rx Instructions:
1 tab If weight increase by >3lbs/day or 5lbs/week.
Continued
loperamide 2 mg Capsule
2 mg PO DAILYPRN PRN (Reason: diarrhea)
acetaminophen 500 mg Tablet
500 mg PO Q6HPRN PRN (Reason: mild pain)
apixaban 5 mg Tablet
5 mg PO BID Qty: 0 0RF
aspirin 81 mg Capsule
81 mg PO DAILY Qty: 0 0RF
Discontinued
metoprolol succinate 25 mg Tablet Extended Release 24 Hr
25 mg PO DAILY
diltiazem HCl 240 mg Capsule,Extended Release 24hr
240 mg PO DAILY
Discharge Orders:
Discharge Patient (As Directed); Ordered 11/20/24
Ordered By: Frankie Ferraro
Discharge Date and Time
Discharge Date/Time: 11/20/24 17:53
Print Language: UPPER SORBIAN
--- NOTE | 2024-11-21 10:00 | W.HF.CON ---
Heart Failure
- LV Function
Left ventricular function study result: LV Ejection fraction >/= 50%
Ejection Fraction Percentage: 55
- ARNI
Patient already on ARNI: No
Heart Failure ARNI Not Indicated: LV Ejection Fraction >/= 40%
- ACEI/ARB
Patient already on ACEI/ARB: No
Heart Failure ACEI/ARB Not Indicated: LV Ejection Fraction > 40%
- Beta Zoë
Patient already on Evidence Based Beta Zoë: Yes
- Mineralocorticord Receptor Antagonist
Patient already on MRA: No
Heart Failure MRA Not Indicated: LV Ejection Fraction > 40%
- SGLT-2 Inhibitor
Patient already on SGLT-2 Inhibitor: Yes
- Afib Anticoagulation
Patient already on Anticoagulation for Afib: Yes
- NYHA CHF Classification
NYHA CHF Classification Level: Class III - Symptoms w/ min exertion, interferes w/ nml daily activity
- ACC/AHA Stage
ACC/AHA Stage: Stage C: Symptomatic Heart Failure
== END 2024-11-20 17:53 | disposition home or self-care (01) | DRG 291 ==
LOC: 3 WEST ACU 12:57
PROVIDERS: ADMITTING PHYSICIAN Internal Medicine; ATTENDING PHYSICIAN Family Medicine; CONSULT PHYSICIAN Internal Medicine Cardiovascular Disease; EMERGENCY PHYSICIAN Emergency Medicine; FAMILY PHYSICIAN Family Medicine
DX: I11.0 Hypertensive heart disease with heart failure (principal); I50.31 Acute diastolic (congestive) heart failure; E87.1 Hypo-osmolality and hyponatremia; J84.9 Interstitial pulmonary disease, unspecified; Z87.891 Personal history of nicotine dependence; I48.91 Unspecified atrial fibrillation; E78.00 Pure hypercholesterolemia, unspecified; Z79.01 Long term (current) use of anticoagulants; Z79.82 Long term (current) use of aspirin; Z79.899 Other long term (current) drug therapy; Z98.61 Coronary angioplasty status; Z11.52 Encounter for screening for COVID-19
CPT/HCPCS: 71046; 80048; 80053; 80061; 81003; 81015; 83880; 83935; 84300; 84443; 84484; 85025; 85610; 87502; 87811; 93005; 93306; 99285